=== PATIENT | male | born 1945 | race Hispanic/Latino ===

== ENCOUNTER 2021-05-16 15:00 | Inpatient (IN) | payer OTHER ==
[~2021-05-16] VITALS: Ht 175.3 cm; Wt 81.7 kg
[2021-05-18 11:42] LABS: BASOPHILS % (AUTO) 1.1 % (0.0-5.0); EOSINOPHILS % (AUTO) 1.3 % (0.0-8.0); HEMATOCRIT 36.9 % (42-54); LYMPHOCYTES % (AUTO) 16.9 % (21.0-51.0); MEAN CORPUSCULAR HEMOGLOBIN 25.4 pg (27.0-33.0); MEAN CORPUSCULAR VOLUME 79.4 fL (79-99); NEUTROPHILS % (AUTO) 73.4 % (40.0-77.0); PLATELET COUNT (AUTO) 409 K/uL (130-400); RED BLOOD CELL COUNT(AUTO) 4.65 MIL/uL (4.50-6.20); RED CELL DISTRIBUTION WIDTH 15.7 % (11.0-15.5); WHITE BLOOD COUNT (AUTO) 8.7 K/uL (4.8-10.8)
[2021-05-18 11:53] LABS: CREATININE 0.8 mg/dL (0.5-1.5); POTASSIUM 4.5 mmol/L (3.5-5.1)
[2021-05-18 12:02] LABS: INR 0.96 (0.85-1.15); PROTHROMBIN TIME 10.5 SEC (9.6-11.6)
[2021-05-18 12:04] LABS: PARTIAL THROMBOPLASTIN TIME 26.8 SEC (26.3-35.5)
[2021-05-22 10:16] VITALS: BP 170/69
[2021-05-22] MEDS ORDERED: LISI40TA9 PO (12:33)
[2021-05-22] MEDS ORDERED: VITA1CAP85 PO (12:33)
[2021-05-22] MEDS ORDERED: TAMS-1 PO (12:33)
[2021-05-22] MEDS ORDERED: FERR324T23 PO (12:33)
[2021-05-22] MEDS ORDERED: GLIP10TA9 PO (12:33)
[2021-05-22] MEDS ORDERED: DONE10TA43 PO (12:33)
[2021-05-22] MEDS ORDERED: SILD100T PO (12:33)
[2021-05-22] MEDS ORDERED: LIDO1ADH82 TP (12:33)
[2021-05-22] MEDS ORDERED: METF-446 PO (12:33)
[2021-05-22] MEDS ORDERED: BETA1TAB20 PO (12:37)
[2021-05-23] VITALS (14 sets, daily range): BP systolic 129–184; BP diastolic 56–76
[2021-05-23] MEDS: CEFAZOLIN SODIUM 1 GM VIAL IVP SCH ×2 (06:00→09:15)
[2021-05-23] MEDS ORDERED: 0.9%NACL 1000ML 1,000 ML IV ONE (08:18)
[2021-05-23] MEDS ORDERED: LIDOCAINE PF 100MG/5ML (2%) SYRINGE 5ML ONE (08:54)
[2021-05-23] MEDS ORDERED: PROPOFOL 10 MG/ML 20ML VIAL IV ONE (08:54)
[2021-05-23] MEDS ORDERED: ONDANSETRON 4MG INJ ONE (08:54)
[2021-05-23] MEDS ORDERED: MIDAZOLAM HCL 1 MG/ML 2ML VIAL ONE (08:54)
[2021-05-23] MEDS ORDERED: ROCURONIUM 10MG/1ML SYR 10 MG/ML ML ONE (08:54)
[2021-05-23] MEDS ORDERED: FENTANYL CITRATE PF 50 MCG/1 ML 2ML VIAL ONE ×2 (08:54→11:47)
[2021-05-23] MEDS ORDERED: METRONIDAZOLE 500MG/100ML BAG 100 ML ONE (09:06)
[2021-05-23] MEDS ORDERED: EPHEDRINE SULFATE 50 MG/ML AMPULE ONE (09:43)
[2021-05-23] MEDS ORDERED: NEOSTIGMINE 5MG/5ML SYR IV ONE (11:48)
[2021-05-23] MEDS ORDERED: GLYCOPYRROLATE 1 MG/5 ML SYRINGE ONE (11:48)
[2021-05-23] MEDS ORDERED: LIDOCAINE 1%-EPI 1:100,000 20 ML VIAL IJ ONE (11:48)
[2021-05-23] MEDS ORDERED: BUPIVACAINE/PF 0.25% 30ML VIAL IJ ONE (11:48)
[2021-05-23] MEDS ORDERED: HYDROMORPHONE 1 MG INJ ONE (14:13)
[2021-05-23] MEDS ORDERED: HYDROMORPHONE 1 MG INJ IVP PRN (14:30)
[2021-05-23] MEDS ORDERED: ONDANSETRON 4MG INJ IVP PRN (14:30)
[2021-05-23] MEDS ORDERED: DEXTROSE 50%-WATER 50 ML DISP.SYRIN IV PRN (14:30)
[2021-05-23] MEDS ORDERED: KETOROLAC 30MG VIAL (30MG/ML) ONE (15:05)
[2021-05-23] MEDS: INSULIN HUMULIN R 100 UNIT/ML 3ML SQ SCH ×2 (16:15→20:44)
[2021-05-23] MEDS ORDERED: METOPROLOL TARTRATE 1 MG/ML 5ML VIAL IV PRN (21:00)
[2021-05-23] MEDS: ZOSYN 3.375GM +NS 50ML IV SCH (21:18)
[2021-05-23] MEDS: 0.9%NACL 1000ML 1,000 ML IV SCH (21:18)
[2021-05-23] MEDS: PANTOPRAZOLE 40 MG/VIAL IVP SCH (21:18)
[2021-05-24] VITALS: BP 119/54
[2021-05-24 03:52] LABS: BASOPHILS % (AUTO) 0.5 % (0.0-5.0); EOSINOPHILS % (AUTO) 1.6 % (0.0-8.0); HEMATOCRIT 30.1 % (42-54); LYMPHOCYTES % (AUTO) 11.9 % (21.0-51.0); MEAN CORPUSCULAR HEMOGLOBIN 24.9 pg (27.0-33.0); MEAN CORPUSCULAR HGB CONC 32.2 g/dL (32.0-36.0); MEAN CORPUSCULAR VOLUME 77.2 fL (79-99); MONOCYTES % (AUTO) 8.7 % (3.0-13.0); NEUTROPHILS % (AUTO) 77.1 % (40.0-77.0); PLATELET COUNT (AUTO) 307 K/uL (130-400); RED CELL DISTRIBUTION WIDTH 15.7 % (11.0-15.5); WHITE BLOOD COUNT (AUTO) 6.5 K/uL (4.8-10.8)
[2021-05-24 04:00] VITALS: BP 133/63
[2021-05-24 04:09] LABS: CREATININE 0.9 mg/dL (0.5-1.5); MAGNESIUM 1.5 mg/dL (1.80-2.40); PHOSPHORUS 3.9 mg/dL (2.5-4.9); POTASSIUM 4.7 mmol/L (3.5-5.1)
[2021-05-24] MEDS: 0.9%NACL 1000ML 1,000 ML IV SCH ×3 (05:17→22:15)
[2021-05-24] MEDS: ZOSYN 3.375GM +NS 50ML IV SCH ×3 (06:08→22:15)
[2021-05-24] MEDS: INSULIN HUMULIN R 100 UNIT/ML 3ML SQ SCH ×3 (06:33→16:30)
[2021-05-24 07:42] VITALS: BP 134/63
[2021-05-24] MEDS: ENOXAPARIN SODIUM 40 MG/0.4 ML SYRINGE SQ SCH (09:12)
[2021-05-24] MEDS: MAGNESIUM 2GM PREMIX 50ML 50 ML IV SCH (11:21)
[2021-05-24 11:45] VITALS: BP 137/67
[2021-05-24 13:15] LABS: HEMOGLOBIN A1C 8.5 % (4.0-6.0)
[2021-05-24 15:37] VITALS: BP 152/75
[2021-05-24 20:00] VITALS: BP 161/77
[2021-05-24] MEDS: PANTOPRAZOLE 40 MG/VIAL IVP SCH (22:15)
[2021-05-24] MEDS: KETOROLAC 30MG VIAL (30MG/ML) IV PRN (22:42)
[2021-05-25] VITALS (7 sets, daily range): BP systolic 153–161; BP diastolic 61–80
[2021-05-25 04:13] LABS: BASOPHILS % (AUTO) 0.5 % (0.0-5.0); EOSINOPHILS % (AUTO) 0.8 % (0.0-8.0); HEMATOCRIT 30.5 % (42-54); LYMPHOCYTES % (AUTO) 8.8 % (21.0-51.0); MEAN CORPUSCULAR HGB CONC 32.1 g/dL (32.0-36.0); MEAN CORPUSCULAR VOLUME 77.8 fL (79-99); NEUTROPHILS % (AUTO) 81.5 % (40.0-77.0); PLATELET COUNT (AUTO) 271 K/uL (130-400); RED BLOOD CELL COUNT(AUTO) 3.92 MIL/uL (4.50-6.20); RED CELL DISTRIBUTION WIDTH 15.9 % (11.0-15.5); WHITE BLOOD COUNT (AUTO) 10.4 K/uL (4.8-10.8)
[2021-05-25 04:27] LABS: CREATININE 0.9 mg/dL (0.5-1.5); MAGNESIUM 1.9 mg/dL (1.80-2.40); POTASSIUM 3.8 mmol/L (3.5-5.1)
[2021-05-25] MEDS: ZOSYN 3.375GM +NS 50ML IV SCH ×3 (05:08→21:40)
[2021-05-25] MEDS: 0.9%NACL 1000ML 1,000 ML IV SCH (05:14)
[2021-05-25] MEDS: INSULIN HUMULIN R 100 UNIT/ML 3ML SQ SCH ×4 (05:56→17:04)
[2021-05-25] MEDS: ENOXAPARIN SODIUM 40 MG/0.4 ML SYRINGE SQ SCH (09:40)
[2021-05-25] MEDS: PANTOPRAZOLE 40 MG/VIAL IVP SCH (21:40)
[2021-05-26] MEDS: 0.9%NACL 1000ML 1,000 ML IV SCH ×3 (03:33→18:52)
[2021-05-26 04:08] VITALS: BP 150/70
[2021-05-26] MEDS: ZOSYN 3.375GM +NS 50ML IV SCH ×3 (05:38→21:59)
[2021-05-26] MEDS: INSULIN HUMULIN R 100 UNIT/ML 3ML SQ SCH ×4 (06:00→18:42)
[2021-05-26 08:00] VITALS: BP 157/78
[2021-05-26] MEDS: ENOXAPARIN SODIUM 40 MG/0.4 ML SYRINGE SQ SCH (08:34)
[2021-05-26 12:00] VITALS: BP 170/78
[2021-05-26 16:00] VITALS: BP 167/96
[2021-05-26 20:00] VITALS: BP 189/95
[2021-05-26] MEDS: PANTOPRAZOLE 40 MG/VIAL IVP SCH (21:59)
[2021-05-27] VITALS: BP 184/78
[2021-05-27 04:00] VITALS: BP 164/80
[2021-05-27 04:16] LABS: BASOPHILS % (AUTO) 0.4 % (0.0-5.0); EOSINOPHILS % (AUTO) 3.6 % (0.0-8.0); HEMATOCRIT 33.4 % (42-54); LYMPHOCYTES % (AUTO) 11.8 % (21.0-51.0); MEAN CORPUSCULAR HEMOGLOBIN 24.7 pg (27.0-33.0); MEAN CORPUSCULAR VOLUME 77.1 fL (79-99); MONOCYTES % (AUTO) 10.5 % (3.0-13.0); NEUTROPHILS % (AUTO) 73.2 % (40.0-77.0); PLATELET COUNT (AUTO) 374 K/uL (130-400); RED BLOOD CELL COUNT(AUTO) 4.33 MIL/uL (4.50-6.20); RED CELL DISTRIBUTION WIDTH 15.3 % (11.0-15.5); WHITE BLOOD COUNT (AUTO) 7.8 K/uL (4.8-10.8)
[2021-05-27] MEDS: ZOSYN 3.375GM +NS 50ML IV SCH (04:21)
[2021-05-27] MEDS: 0.9%NACL 1000ML 1,000 ML IV SCH (04:21)
[2021-05-27 04:43] LABS: CREATININE 0.8 mg/dL (0.5-1.5); MAGNESIUM 1.7 mg/dL (1.80-2.40)
[2021-05-27] MEDS: INSULIN HUMULIN R 100 UNIT/ML 3ML SQ SCH ×4 (06:00→18:00)
[2021-05-27] MEDS: MAGNESIUM 2GM PREMIX 50ML 50 ML IV SCH (06:39)
[2021-05-27 08:00] VITALS: BP 159/75
[2021-05-27] MEDS: ENOXAPARIN SODIUM 40 MG/0.4 ML SYRINGE SQ SCH (09:07)
[2021-05-27 11:37] VITALS: BP 145/77
[2021-05-27] MEDS: LISINOPRIL 20 MG TABLET PO SCH (11:52)
[2021-05-27] MEDS: METFORMIN HCL 500 MG TABLET PO SCH ×2 (11:55→16:56)
[2021-05-27] MEDS: FERROUS GLUCONATE TABLET PO SCH (11:55)
[2021-05-27 16:00] VITALS: BP 178/90
[2021-05-27] MEDS: PANTOPRAZOLE 40 MG/VIAL IVP SCH (20:34)
[2021-05-27] MEDS: DONEPEZIL HCL 5 MG TAB PO SCH (20:36)
[2021-05-27] MEDS: KETOROLAC 30MG VIAL (30MG/ML) IV PRN (20:41)
[2021-05-27] MEDS: **HM**PRESERVISION AREDS PO SCH (20:41)
[2021-05-28] VITALS: BP 155/76
[2021-05-28 04:00] VITALS: BP 142/70
[2021-05-28] MEDS: INSULIN HUMULIN R 100 UNIT/ML 3ML SQ SCH ×4 (06:00→18:00)
[2021-05-28 06:04] LABS: BASOPHILS % (AUTO) 0.5 % (0.0-5.0); EOSINOPHILS % (AUTO) 4.9 % (0.0-8.0); LYMPHOCYTES % (AUTO) 15.1 % (21.0-51.0); MEAN CORPUSCULAR HEMOGLOBIN 25.1 pg (27.0-33.0); MEAN CORPUSCULAR HGB CONC 31.8 g/dL (32.0-36.0); MEAN CORPUSCULAR VOLUME 78.9 fL (79-99); MONOCYTES % (AUTO) 12.3 % (3.0-13.0); NEUTROPHILS % (AUTO) 66.7 % (40.0-77.0); PLATELET COUNT (AUTO) 362 K/uL (130-400); RED BLOOD CELL COUNT(AUTO) 4.18 MIL/uL (4.50-6.20); WHITE BLOOD COUNT (AUTO) 7.3 K/uL (4.8-10.8)
[2021-05-28 06:16] LABS: CREATININE 0.8 mg/dL (0.5-1.5); MAGNESIUM 1.9 mg/dL (1.80-2.40); POTASSIUM 3.3 mmol/L (3.5-5.1)
[2021-05-28 08:00] VITALS: BP 165/71
[2021-05-28] MEDS: **HM**PRESERVISION AREDS PO SCH ×2 (09:00→21:00)
[2021-05-28] MEDS: TAMSULOSIN HCL 0.4 MG CAP.ER.24H PO SCH (09:31)
[2021-05-28] MEDS: METFORMIN HCL 500 MG TABLET PO SCH ×3 (09:31→17:33)
[2021-05-28] MEDS: DONEPEZIL HCL 5 MG TAB PO SCH ×2 (09:31→21:04)
[2021-05-28] MEDS: LISINOPRIL 20 MG TABLET PO SCH (09:31)
[2021-05-28] MEDS: ENOXAPARIN SODIUM 40 MG/0.4 ML SYRINGE SQ SCH (09:32)
[2021-05-28] MEDS: FERROUS GLUCONATE TABLET PO SCH (09:32)
[2021-05-28] MEDS: LIDOCAINE 5% TOPICAL PATCH TP SCH (09:33)
[2021-05-28] MEDS: KCL 20 MEQ ERTAB PO SCH (09:35)
[2021-05-28 12:00] VITALS: BP 159/87
[2021-05-28 16:00] VITALS: BP 159/78
[2021-05-28 20:00] VITALS: BP 148/78
[2021-05-28] MEDS: PANTOPRAZOLE 40 MG/VIAL IVP SCH (21:03)
[2021-05-29] VITALS: BP 129/67
[2021-05-29 04:00] VITALS: BP 107/66
[2021-05-29] MEDS: INSULIN HUMULIN R 100 UNIT/ML 3ML SQ SCH ×3 (06:00→17:18)
[2021-05-29 08:00] VITALS: BP 157/72
[2021-05-29 08:03] LABS: CREATININE 0.8 mg/dL (0.5-1.5); POTASSIUM 4.3 mmol/L (3.5-5.1)
[2021-05-29] MEDS ORDERED: LISI20TA24 PO (08:03)
[2021-05-29] MEDS: TAMSULOSIN HCL 0.4 MG CAP.ER.24H PO SCH (08:56)
[2021-05-29] MEDS: METFORMIN HCL 500 MG TABLET PO SCH ×3 (08:56→16:39)
[2021-05-29] MEDS: LISINOPRIL 20 MG TABLET PO SCH (08:56)
[2021-05-29] MEDS: DONEPEZIL HCL 5 MG TAB PO SCH (08:56)
[2021-05-29] MEDS: FERROUS GLUCONATE TABLET PO SCH (08:58)
[2021-05-29] MEDS: LIDOCAINE 5% TOPICAL PATCH TP SCH (08:59)
[2021-05-29] MEDS: KCL 20 MEQ ERTAB PO SCH (09:00)
[2021-05-29] MEDS: **HM**PRESERVISION AREDS PO SCH (09:00)
[2021-05-29] MEDS: ENOXAPARIN SODIUM 40 MG/0.4 ML SYRINGE SQ SCH (09:02)
[2021-05-29 12:00] VITALS: BP 122/66
[2021-05-29 16:00] VITALS: BP 151/61
== END 2021-05-29 17:15 | DRG 331 ==
LOC: DAHIP 05-23 07:43 → 3DH 05-23 13:16 → EDSTATUS 05-23 15:00
PROVIDERS: ADMIT Surgery; ATTEND Surgery
PROC: 0DBF4ZZ Excision of Right Large Intestine, Percutaneous Endoscopic Approach (ICD-10-PCS; principal; 2021-05-23 09:00)
DX: C18.2 Malignant neoplasm of ascending colon (principal); I10 Essential (primary) hypertension; E11.9 Type 2 diabetes mellitus without complications; N40.0 Benign prostatic hyperplasia without lower urinary tract symptoms; Z20.822 Contact with and (suspected) exposure to COVID-19; Z79.84 Long term (current) use of oral hypoglycemic drugs; Z83.3 Family history of diabetes mellitus; Z82.49 Family history of ischemic heart disease and other diseases of the circulatory system
CPT/HCPCS: 36415; 71045; 80048; 82948; 83036; 83735; 84100; 85025; 85610; 85730; 87324; 87635; 88309; 88360; 93005; 97039; A4344; A4606; C9113; C9803; G0378; J0690; J1170; J1650; J1815; J1885; J2001; J2250; J2405; J2543; J2704; J2710; J3010; J3475; J3490; J7030

== ENCOUNTER 2021-12-04 09:53 | Emergency (ER) | payer MEDICARE, OTHER ==
[~2021-12-04] VITALS: Ht 175.3 cm; Wt 82.6 kg
[~2021-12-04 09:53] MED LIST: BETA1TAB20 PO; DONE10TA43 PO; FERR324T23 PO; FOLI1 PO; FURO20TA6 PO; LIDO1ADH82 TP; LISI20TA24 PO; METF-446 PO; TAMS-1 PO; VITA1CAP85 PO
[2021-12-04 10:11] LABS: BASOPHILS % (AUTO) 0.7 % (0.0-5.0); EOSINOPHILS % (AUTO) 0.8 % (0.0-8.0); HEMATOCRIT 34.4 % (42-54); LYMPHOCYTES % (AUTO) 17.3 % (21.0-51.0); MEAN CORPUSCULAR HEMOGLOBIN 24.9 pg (27.0-33.0); MEAN CORPUSCULAR HGB CONC 31.7 g/dL (32.0-36.0); MEAN CORPUSCULAR VOLUME 78.5 fL (79-99); MONOCYTES % (AUTO) 6.6 % (3.0-13.0); NEUTROPHILS % (AUTO) 74.2 % (40.0-77.0); PLATELET COUNT (AUTO) 285 K/uL (130-400); RED BLOOD CELL COUNT(AUTO) 4.38 MIL/uL (4.50-6.20); RED CELL DISTRIBUTION WIDTH 19.4 % (11.0-15.5); WHITE BLOOD COUNT (AUTO) 7.1 K/uL (4.8-10.8)
[2021-12-04 10:29] LABS: ALBUMIN 3.4 g/dL (3.5-5.0); BILIRUBIN,TOTAL 0.6 mg/dL (0.2-1.0); POTASSIUM 4.8 mmol/L (3.5-5.1); TOTAL PROTEIN, SERUM 6.8 g/dL (6.0-8.3)
[2021-12-04 10:33] LABS: APPEARANCE,URINE Clear (CLEAR); BILIRUBIN,URINE Negative (NEGATIVE); COLOR,URINE Yellow (YELLOW); GLUCOSE, URINE (UA) 500 mg/dL (NEGATIVE); KETONES,URINE Negative (NEGATIVE); LEUKOCYTE ESTERASE ,URINE Negative (NEGATIVE); NITRATE,URINE Negative (NEGATIVE); OCCULT BLOOD,URINE Negative (NEGATIVE); PROTEIN,URINE Trace mg/dL (NEGATIVE); UROBILINOGEN,URINE 0.2 mg/dL (0.2-1.0)
[2021-12-04 10:35] LABS: BACTERIA,URINE Rare /HPF (None Seen); RBC,URINE 0-1 /HPF (0-1); SQUAMOUS EPITHELIAL CELL,UR Rare /HPF (0-2); WBC,URINE 0-1 /HPF (0-1)
[2021-12-04] MEDS ORDERED: FUROSEMIDE 40MG VIAL IV SCH (11:00)
[2021-12-04 11:35] LABS: B-TYPE NATRIURETIC PEPTIDE 259 pg/mL (0-100)
[2021-12-04 11:38] VITALS: BP 154/89
[2021-12-04] MEDS ORDERED: FURO-152 PO (12:21)
== END 2021-12-04 12:54 | disposition home or self-care (01) ==
LOC: EDH 09:53
DX: E87.70 Fluid overload, unspecified (principal); I48.91 Unspecified atrial fibrillation; I11.0 Hypertensive heart disease with heart failure; I50.9 Heart failure, unspecified; E11.9 Type 2 diabetes mellitus without complications; E78.00 Pure hypercholesterolemia, unspecified; Z98.890 Other specified postprocedural states; Z79.84 Long term (current) use of oral hypoglycemic drugs; Z79.899 Other long term (current) drug therapy
CPT/HCPCS: 36415; 71045; 80053; 81001; 83880; 84484; 85025; 93005 ×2; 96374; 99285; J1940